=== PATIENT | male | born 1960 | race Asian ===

== ENCOUNTER 2019-06-21 17:19 | Emergency (ER) | payer BC ==
[~2019-06-21] VITALS: Ht 165.1 cm; Wt 72.6 kg
[2019-06-21 20:01] VITALS: BP 124/86; TEMP 99.5
== END 2019-06-21 20:03 | disposition home or self-care (01) ==
LOC: ED 17:19
DX: J02.9 Acute pharyngitis, unspecified (principal)
CPT/HCPCS: 87651; 96372; 99283; J0696; J1885

== ENCOUNTER 2019-10-21 15:17 | Outpatient (CLI) | payer BC | END 2019-10-21 19:39 | disposition home or self-care (01) | LOC: RAD 15:17 | DX: M79.671 Pain in right foot (principal) ==

== ENCOUNTER 2020-04-28 14:33 | Outpatient (CLI) | payer BC | END 2020-04-28 20:51 | disposition home or self-care (01) | LOC: RAD 14:33 | DX: Z03.818 Encounter for observation for suspected exposure to other biological agents ruled out (principal) ==

== ENCOUNTER 2020-06-12 16:56 | Inpatient (IN) | payer BC, OTHER ==
[~2020-06-12] VITALS: Ht 165.1 cm; Wt 75.6 kg
[2020-06-12 18:27] LABS: PLATELET COUNT 131 K/uL (142-355)
[2020-06-12 18:50] LABS: POTASSIUM 4.2 mmol/L (3.6-5.2)
[2020-06-12 19:22] VITALS: BP 143/77; TEMP 99.8; Ht 165.1 cm; Wt 75.6 kg
[2020-06-12 19:56] VITALS: BP 95/60; TEMP 101
[2020-06-12 23:58] VITALS: BP 101/63; TEMP 98.7
[2020-06-13 04:00] VITALS: BP 117/67; TEMP 98.9
[2020-06-13 08:00] VITALS: BP 121/76; TEMP 101.9
[2020-06-13 09:38] LABS: POTASSIUM 3.7 mmol/L (3.6-5.2)
[2020-06-13 09:51] LABS: PLATELET COUNT 132 K/uL (142-355)
[2020-06-13 12:00] VITALS: BP 120/75; TEMP 98.9
[2020-06-13 16:00] VITALS: BP 110/65; TEMP 103
[2020-06-13 20:00] VITALS: BP 99/71; TEMP 99.2
[2020-06-13 23:43] VITALS: BP 104/68; TEMP 99.1
[2020-06-14 04:00] VITALS: BP 114/69; TEMP 102.9
[2020-06-14 05:58] LABS: PLATELET COUNT 135 K/uL (142-355)
[2020-06-14 06:24] LABS: POTASSIUM 3.6 mmol/L (3.6-5.2)
[2020-06-14 08:00] VITALS: BP 110/74; TEMP 98.1
[2020-06-14 12:00] VITALS: BP 96/63; TEMP 100.5
[2020-06-14 16:00] VITALS: BP 84/49; TEMP 98.9
[2020-06-14 20:14] VITALS: BP 103/69; TEMP 97.9
[2020-06-15] VITALS: BP 86/51; TEMP 99.1
[2020-06-15 04:17] VITALS: BP 93/58; TEMP 97.9
[2020-06-15 05:44] LABS: POTASSIUM 4.4 mmol/L (3.6-5.2)
[2020-06-15 05:58] LABS: PLATELET COUNT 118 K/uL (142-355)
[2020-06-15 08:00] VITALS: BP 95/58; TEMP 98.2
[2020-06-15 12:00] VITALS: BP 97/65; TEMP 98.5
[2020-06-15 16:00] VITALS: BP 117/73; TEMP 98.3
[2020-06-15 20:00] VITALS: BP 121/77; TEMP 98.2
[2020-06-16] VITALS: BP 104/68; TEMP 98.6
[2020-06-16 04:00] VITALS: BP 116/74; TEMP 98.1
[2020-06-16 05:00] LABS: PLATELET COUNT 144 K/uL (142-355)
[2020-06-16 05:24] LABS: POTASSIUM 4.4 mmol/L (3.6-5.2)
[2020-06-16 08:00] VITALS: BP 120/81; TEMP 98.5
[2020-06-16 12:00] VITALS: BP 114/68; TEMP 98.4
[2020-06-16 16:00] VITALS: BP 118/74; TEMP 98.7
[2020-06-16 20:00] VITALS: BP 107/62; TEMP 98.2
[2020-06-17] VITALS: BP 130/78; TEMP 98.6
[2020-06-17 04:00] VITALS: BP 136/81; TEMP 98.4
[2020-06-17 05:35] LABS: PLATELET COUNT 152 K/uL (142-355)
[2020-06-17 05:45] LABS: POTASSIUM 4.1 mmol/L (3.6-5.2)
[2020-06-17 08:00] VITALS: BP 127/72; TEMP 98.7
[2020-06-17 12:00] VITALS: BP 124/72; TEMP 98.5
[2020-06-17 16:00] VITALS: BP 130/8; TEMP 98.7
== END 2020-06-17 18:10 | disposition home or self-care (01) | DRG 177 ==
LOC: MED/SURG 16:56
PROVIDERS: ADMIT Family Medicine
DX: U07.1 COVID-19 (principal); J18.8 Other pneumonia, unspecified organism; E44.1 Mild protein-calorie malnutrition; E11.9 Type 2 diabetes mellitus without complications; F32.89 Other specified depressive episodes; R09.02 Hypoxemia; R06.09 Other forms of dyspnea; D64.89 Other specified anemias; D72.818 Other decreased white blood cell count
CPT/HCPCS: 36415; 80053; 82728; 82948; 83735; 84100; 85027; 85379; 86140; 87040; 87635; 93005; 94667; 94668; 94760; 96361; 96365; 96367; 96372; 96375; J0456; J0696; J1650; J1815; J1885; J2405; U0003

== ENCOUNTER 2020-09-02 21:43 | Emergency (ER) | payer OTHER, BC ==
[~2020-09-02] VITALS: Ht 165.1 cm; Wt 70.8 kg
[2020-09-02 22:44] VITALS: BP 120/90; TEMP 98.3
== END 2020-09-02 22:44 | disposition home or self-care (01) ==
LOC: ED 21:43
DX: S61.052A Open bite of left thumb without damage to nail, initial encounter (principal); S61.255A Open bite of left ring finger without damage to nail, initial encounter; Y04.1XXA Assault by human bite, initial encounter; Y92.148 Other place in prison as the place of occurrence of the external cause
CPT/HCPCS: 99282

== ENCOUNTER 2020-12-12 15:34 | Outpatient (CLI) | payer OTHER | END 2020-12-12 19:29 | disposition home or self-care (01) | LOC: RAD 15:34 | PROVIDERS: ATTEND Nurse Practitioner Family | DX: M25.531 Pain in right wrist (principal) ==

== ENCOUNTER 2021-01-24 13:00 | Emergency (ER) | payer BC ==
[~2021-01-24] VITALS: Ht 165.1 cm; Wt 63.5 kg
[2021-01-24 13:42] LABS: PLATELET COUNT 186 K/uL (142-355)
[2021-01-24 13:53] LABS: SODIUM 136 mmol/L (136-145)
[2021-01-24] MEDS ORDERED: GLIP10TA55 PO (14:06)
[2021-01-24 19:52] VITALS: BP 133/87; TEMP 97.8
== END 2021-01-24 19:52 | disposition other institution (70) ==
LOC: ED 13:04
PROVIDERS: Family Medicine
DX: F32.89 Other specified depressive episodes (principal); R45.851 Suicidal ideations; Z11.52 Encounter for screening for COVID-19
CPT/HCPCS: 80053; 80307; 80320; 80329; 81000; 85027; 87635; 93005; 99285; U0003